=== PATIENT | female | born 1970 | race Caucasian/White ===

== ENCOUNTER 2017-02-10 11:56 | Emergency (ER) | payer BC ==
[~2017-02-10] VITALS: Ht 167.6 cm; Wt 75.3 kg
[2017-02-10 12:02] VITALS: BP 125/89
--- NOTE | 2017-02-10 12:56 | RAD ---
PA and lateral chest radiographs 02/10/2017 Clinical History: Congestion with productive cough for the last 4 days.. PA and lateral digital radiographs of the chest were obtained. No previous studies are available for comparison. The cardiac and mediastinal silhouettes are within normal limits in size and configuration. No pulmonary infiltrate is seen. No pleural effusion or pneumothorax is noted. The osseous structures are grossly intact. Impression: No radiographic evidence of active cardiopulmonary disease.
--- NOTE | 2017-02-10 12:59 | PHYS DOC ---
Past Medical History Past Medical History: Anxiety, Asthma, Depression Additional Past Medical Histor: seasonal allergies Past Surgical History: Additional Past Surgical Histo: breast augmentation Alcohol Use: Occasionally Drug Use: None Adult General Chief Complaint Chief Complaint: ASTHMA HPI HPI Patient is a 46 year old female with a history of asthma and seasonal allergic rhinitis, comes emergency room today with complaint of worsening cough and chest wall pain secondary to coughing this been ongoing for greater than a week. Patient was exiting urgent care 3 days ago. She was prescribed amoxicillin for a "sinus infection" and she just completed a course of clarithromycin for the same. She reports she received a shot of a steroid at that time and also was given one nebulizer solution for nebulizer. Patient states that she continues to have a harsh cough. She feels as if she can't fully take a deep breath and chest wall pain. Other than her history of asthma, she denies any other history of cardiopulmonary disease. She denies any fevers or chills. Review of Systems Review of Systems Constitutional: Denies fever or chills [] Eyes: Denies change in visual acuity, redness, or eye pain [] HENT: Denies nasal congestion or sore throat [] Respiratory: Denies cough or shortness of breath [] Cardiovascular: No additional information not addressed in HPI [] GI: Denies abdominal pain, nausea, vomiting, bloody stools or diarrhea [] : Denies dysuria or hematuria [] Musculoskeletal: Denies back pain or joint pain [] Integument: Denies rash or skin lesions [] Neurologic: Denies headache, focal weakness or sensory changes [] Endocrine: Denies polyuria or polydipsia [] Allergies Allergies Allergies Coded Allergies Type Severity Reaction Last Updated Verified levofloxacin Allergy Intermediate 02/10/17 Yes Physical Exam Physical Exam Constitutional: Well developed, well nourished, no acute distress, non-toxic appearance. [] HENT: Normocephalic, atraumatic, bilateral external ears normal, oropharynx moist, no oral exudates, nose normal. [] Eyes: PERRLA, EOMI, conjunctiva normal, no discharge. [] Neck: Normal range of motion, no tenderness, supple, no stridor. [] Cardiovascular:Heart rate regular rhythm, no murmur [] Lungs & Thorax: Patient demonstrates a harsh, staccato, nonproductive cough. There is no evidence of respiratory distress or respiratory fatigue. There is no posturing or assessory muscle use. Lungs are clear to auscultation bilaterally. Oxygen saturation is 98% on room air. Abdomen: Bowel sounds normal, soft, no tenderness, no masses, no pulsatile masses. [] Skin: Warm, dry, no erythema, no rash. [] Back: No tenderness, no CVA tenderness. [] Extremities: No tenderness, no cyanosis, no clubbing, ROM intact, no edema. [] Neurologic: Alert and oriented X 3, normal motor function, normal sensory function, no focal deficits noted. [] Psychologic: Affect normal, judgement normal, mood normal. [] Current Patient Data Vital Signs Vital Signs Date Time Temp Pulse Resp B/P Pulse Ox O2 Delivery O2 Flow Rate FiO2 02/10/17 12:02 98.6 75 18 125/89 96 Room Air 98.6 EKG EKG [] Radiology/Procedures Radiology/Procedures [facility] [address] [place] [address] IMAGING REPORT Signed PATIENT: ROMINA CUNNINGHAM ACCOUNT: [id number] : 1970 LOCATION: ER AGE: 46 SEX: F EXAM STATUS: REG ER ORD. PHYSICIAN: CHAVA LEMONS REASON: harsh, productive cough, on antibx PROCEDURE: CHEST PA & LATERAL PA and lateral chest radiographs 02/10/2017 Clinical History: Congestion with productive cough for the last 4 days.. PA and lateral digital radiographs of the chest were obtained. No previous studies are available for comparison. The cardiac and mediastinal silhouettes are within normal limits in size and configuration. No pulmonary infiltrate is seen. No pleural effusion or pneumothorax is noted. The osseous structures are grossly intact. Impression: No radiographic evidence of active cardiopulmonary disease. DICTATED and SIGNED BY: JANET ROSARIO MD DATE: 02/10/17 9966 CC: CHAVA LEMONS; GABRIELA ARGUETA NP ~ Course & Med Decision Making Course & Med Decision Making Pertinent Labs and Imaging studies reviewed. (See chart for details) [] Dragon Disclaimer Dragon Disclaimer This electronic medical record was generated, in whole or in part, using a voice recognition dictation system. Departure Departure Impression: Primary Impression: Seasonal allergic rhinitis Additional Impressions: Asthma Chest wall muscle strain Disposition: HOME, SELF-CARE Condition: GOOD Referrals: GABRIELA ARGUETA LEAK HUNTER (PCP) Patient Instructions: Allergic Rhinitis, Asthma Prevention-Brief, Asthma, Adult , [id number], Chest Wall Pain, [id number] Additional Instructions: 1. Your chest x-ray here today is normal. 2. Continue taking the medications as prescribed as well as the new medications here today. 3. Review the discharge instructions provided for self-care and reasons to return to the emergency department. 4. Contact your primary care doctor's office Saturday to schedule follow-up appointment for reevaluation by Saturday or . Scripts Prednisone 10 Mg Hitdvp17 Mg PO UD PREDNISONE TAPER #39 TAB Ref 0 Take 3 tablets by mouth twice a day for 3 days, then take 2 tablets by mouth twice a day for 3 days, then take 1 tablet by mouth twice a day for 3 days, then take 1 tablet by mouth daily x 3 days, then stop. Prov:CHAVA LEMONS 02/10/17 Hydrocodone/Chlorphen Polis (Tussionex Pennkinetic Susp)480 Ml Sonia.er.12h5 Ml PO BID PRN COUGH #120 ML Prov:CHAVA LEMONS 02/10/17 Problem Qualifiers CHAVA LEMONS Feb 10, 2017 12:59
[2017-02-10] MEDS ORDERED: HYDR115S2 PO (13:03)
[2017-02-10] MEDS ORDERED: PRED-220 PO (13:03)
== END 2017-02-10 13:09 | disposition home or self-care (01) ==
LOC: ER 11:56
DX: J30.2 Other seasonal allergic rhinitis (principal); J45.909 Unspecified asthma, uncomplicated; S29.011A Strain of muscle and tendon of front wall of thorax, initial encounter; Z88.1 Allergy status to other antibiotic agents; X58.XXXA Exposure to other specified factors, initial encounter; Y93.89 Activity, other specified; Y92.89 Other specified places as the place of occurrence of the external cause; Y99.8 Other external cause status
CPT/HCPCS: 71020; 99284

== ENCOUNTER → 2017-05-03 | Outpatient (CLI) | payer BC ==
[~2017-05-03] MED LIST: HYDR115S2 PO; PRED-220 PO
--- NOTE | 2017-05-03 12:48 | KCIC ---
Bilateral digital screening mammograms: Reason for examination: Routine screening. Comparison is made to previous studies dated back to 01/31/2010. The skin and nipples show no abnormalities. No abnormal axillary lymph nodes are seen. Bilateral breast implants remain in place. The breast parenchyma is heterogeneously dense. (Breast density: Category C.) There are no dominant masses, suspicious calcifications or architectural distortion. Impression: No evidence of malignancy. Recommend routine screening. Your patient's mammogram demonstrates that she has dense breast tissue (breast density category C or D), which could hide abnormalities, and if she has other risk factors for breast cancer that have been identified, she might benefit from supplemental screening tests that may be suggested by you as her ordering physician. Dense breast tissue, in and of itself, is a relatively common condition. Therefore, this information is not provided to cause undue concern, but rather to raise your awareness and to promote discussion with your patient regarding the presence of other risk factors, in addition to dense breast tissue. Your patient's mammography results will be sent to her. BI-RAD Category 1: Negative. "Our facility is accredited by the [employer] Mammography Program." This patient's information has been entered into a reminder system for the patient to be notified with the results of her examination and a target date for the next mammogram. Electronically signed by: Ashwini Mcdowell MD (05/03/2017 12:44 PM) [id number]
== END | disposition home or self-care (01) ==
LOC: KCIC MAMMO 10:53
PROVIDERS: ATTEND Obstetrics & Gynecology
DX: Z12.31 Encounter for screening mammogram for malignant neoplasm of breast (principal)
CPT/HCPCS: G0202; 77067

== ENCOUNTER → 2018-11-06 | Outpatient (CLI) | payer OTHER ==
--- NOTE | 2018-11-06 17:14 | KCIC ---
CHEST PA LATERAL Clinical indications: Shortness of air. Fever. Cough. COMPARISON: February 10, 2017. Findings: No acute lung infiltrate or pleural effusion or pulmonary edema or lung mass or pneumothorax is seen. The heart size, pulmonary vasculature, mediastinum and both amandeep are unremarkable. The osseous structures appear intact. Impression: No acute radiographic abnormality is seen. Electronically signed by: Samuel Mcmillan MD (11/06/2018 5:10 PM) [place] [id number]
== END | disposition home or self-care (01) ==
LOC: KCIC 12:38
PROVIDERS: ATTEND Family Medicine
DX: J18.9 Pneumonia, unspecified organism (principal)
CPT/HCPCS: 71046

== ENCOUNTER → 2019-08-12 | Day surgery (SDC) | payer BC, OTHER ==
[~2019-08-12] MED LIST changes: +BUDE10.2 IH; +CETI10TA22 PO; +IV RINGERS,LACTATED 1000ML 1,000 ML IV SCH; +LIDOCAINE 2% PF 5 ML VIAL. ONE; +MONT10TA49 PO; +PROPOFOL 40 ML IV ONE
[2019-08-12 09:41] VITALS: BP 135/76
--- NOTE | 2019-08-13 15:07 | PATHOLOGY ---
[facility] Accession Number: [id number] . 01 Material submitted: . PART A: duodenum - DUODENAL BIOPSY PART B: colon - RANDOM COLON BIOPSY . 01 Clinical history: . Diarrhea/heartburn rule out celiac disease duodenitis . 02 Diagnosis: A. Duodenal biopsies: - No significant pathologic abnormalities. . B. Random colon biopsies: - Collagenous colitis. (JPM:timbo; 08/13/2019) QMS 08/13/2019 1040 Local . 02 Comment: Sections of the duodenal biopsy reveal segments of duodenal and small intestine mucosa. Where best oriented, the mucosal villi show no sprue-like changes or significant inflammatory changes. . Sections of the random colon biopsy reveal multiple segments of colonic mucosa containing several mucosal-associated lymphoid aggregates and showing a mild chronic active colitis without crypt architectural distortion. Collagen is focally deposited around the absorptive capillary complex beneath the surface epithelium. The findings are supportive of the diagnosis of collagenous colitis. There is no evidence of a chronic destructive colitis. (JPM:timbo; 08/13/2019) . 02 Electronically signed: . Mukul Villavicencio MD, Pathologist NPI- [id number] . 01 Gross description: . A. The specimen is received in formalin, labeled "Debbie Chavez, duodenal BX" and consists of multiple fragments of kelley tissue measuring 1.3 x 0.8 x 0.3 cm in aggregate which are entirely submitted in A1. . B. The specimen is received in formalin, labeled "Chavez, Debbie, random colon BX" and consists of multiple fragments of kelley tissue measuring 1.8 x 0.9 x 0.3 cm in aggregate which are entirely submitted in B1. (SDY; 08/12/2019) SYU/SYU 08/12/2019 1658 Local . 02 Pathologist provided ICD-10: K52.831 . 02 CPT . 817662, [id number] Specimen Comment: A courtesy copy of this report has been sent to Specimen Comment: [phone], . Specimen Comment: Report sent to / DR GRANDE Performed at: 01 [facility] [address], [place], [place] [id number] MD Fawda Barrientos MD Phone: [phone] Performed at: 02 [facility] [address] [place], [place] [id number] MD Mukul Villavicencio MD Phone: [phone]
== END ==
LOC: ENDOS 07:51
PROVIDERS: ATTEND Internal Medicine Gastroenterology
DX: K52.9 Noninfective gastroenteritis and colitis, unspecified (principal); K52.831 Collagenous colitis; K25.9 Gastric ulcer, unspecified as acute or chronic, without hemorrhage or perforation; K31.89 Other diseases of stomach and duodenum; J45.909 Unspecified asthma, uncomplicated; F41.9 Anxiety disorder, unspecified; F15.90 Other stimulant use, unspecified, uncomplicated; Z72.89 Other problems related to lifestyle; Z98.890 Other specified postprocedural states; K64.0 First degree hemorrhoids
CPT/HCPCS: 43239; 45380; J2001; J2704; 88305

== ENCOUNTER → 2019-08-14 | Outpatient (CLI) | payer BC ==
[2019-08-12 09:41] VITALS: BP 135/76
[~2019-08-14] MED LIST changes: +CONTRAST GIVEN. MC PRN; +IOHEXOL 240 MG/ML 50ML VIAL. PO ONE; +IOHEXOL 300 MG/ML 100ML VIAL. IV ONE; -IV RINGERS,LACTATED 1000ML 1,000 ML IV SCH; -LIDOCAINE 2% PF 5 ML VIAL. ONE; -PROPOFOL 40 ML IV ONE
--- NOTE | 2019-08-14 16:23 | RAD ---
EXAM: Abdomen and pelvis CT with intravenous contrast. HISTORY: Pain and diarrhea. TECHNIQUE: Computed tomographic images of the abdomen and pelvis were obtained following the administration of 75 cc Omnipaque 300 intravenous contrast. Multiplanar reformatting was performed. *One or more of the following individualized dose reduction techniques were utilized for this examination: 1. Automated exposure control. 2. Adjustment of the mA and/or kV according to patient size. 3. Use of iterative reconstruction technique. COMPARISON: None. FINDINGS: Evaluation of the lower thorax demonstrates no infiltrate or pleural effusion. There are implanted breast prostheses. The heart is normal in size. There is a tiny hiatal hernia. There is a tiny cyst within the right hepatic lobe and suspected geographic fatty infiltration of the posterior right hepatic lobe. The gallbladder, pancreas, adrenal glands and stomach are unremarkable. There is a splenule along the anterior inferior aspect of an otherwise unremarkable spleen. The kidneys are unremarkable. The appendix is upper normal in caliber. There is no convincing appendicitis. There is no evidence of bowel obstruction. There is faint fatty stranding surrounding the cecum and rectum. The aorta is normal in caliber. No pathologically enlarged lymph node is seen. There is mild urinary bladder wall thickening which is likely due to relative decreased bladder volume. There is a 1.6 cm dominant left ovarian follicle. There is no suspicious osseous lesion. There is mild listhesis of L2 on L3 and L3 on L4 and L4 and L5. IMPRESSION: 1. Prominent appendix caliber. This is likely physiologic given the absence of secondary findings to suggest appendicitis. 2. Faint pericecal and perirectal fatty stranding. Given history of pain and diarrhea, the possibility of colitis or proctitis is not excluded. 3. 1.6 cm dominant left ovarian follicle. Electronically signed by: Caryl Hester MD (08/14/2019 4:20 PM) [place] [id number]
== END | disposition home or self-care (01) ==
LOC: CT 14:33
PROVIDERS: ATTEND Internal Medicine Gastroenterology
DX: K44.9 Diaphragmatic hernia without obstruction or gangrene (principal); K76.89 Other specified diseases of liver; N88.8 Other specified noninflammatory disorders of cervix uteri; Z98.82 Breast implant status
CPT/HCPCS: 74177; Q9966; Q9967

== ENCOUNTER 2020-07-21 13:59 | Emergency (ER) | payer BC ==
[~2020-07-21] VITALS: Ht 170.2 cm; Wt 73.6 kg
[~2020-07-21 13:59] MED LIST changes: -CETI10TA22 PO; +CETI10TA74 PO; -CONTRAST GIVEN. MC PRN; -IOHEXOL 240 MG/ML 50ML VIAL. PO ONE; -IOHEXOL 300 MG/ML 100ML VIAL. IV ONE
[2020-07-21 14:04] VITALS: BP 154/97
[2020-07-21] MEDS ORDERED: HYDROcodone/APAP 5/325MG 1 TAB TABLET PO ONE (14:45)
--- NOTE | 2020-07-21 15:32 | PHYS DOC ---
Past Medical History Past Medical History: Anxiety, Asthma, Depression Additional Past Medical Histor: seasonal allergies Past Surgical History: Additional Past Surgical Histo: breast augmentation, endometrial ablation Smoking Status: Never Smoker Alcohol Use: Occasionally Drug Use: None General Adult EDM: Chief Complaint: UPPER EXTREMITY PAIN HPI: HPI: Patient is a 50 year old female with history of depression, anxiety, who presents to the ED today complaining of a knot on the right forearm that she has had for 5 days. Patient states she was seen by the PCP on Saturday and was told she has cellulitis to the right forearm and was put on Bactrim. She states the area has grown bigger and the right hand forearm is more swollen and red. Patient denies any fever. Denies any nausea vomiting. Review of Systems: Review of Systems: Constitutional: Denies fever or chills. [] Eyes: Denies change in visual acuity. [] HENT: Denies nasal congestion or sore throat. [] Respiratory: Denies cough or shortness of breath. [] Cardiovascular: Denies chest pain or edema. [] GI: Denies abdominal pain, nausea, vomiting, bloody stools or diarrhea. [] : Denies dysuria. [] Musculoskeletal: Denies back pain or joint pain. [] Integument: Reports a knot to the right forearm Neurologic: Denies headache, focal weakness or sensory changes. [] Psychiatric: Denies depression or anxiety. [] Heart Score: Risk Factors: Risk Factors: DM, Current or recent (<one month) smoker, HTN, HLP, family history of CAD, obesity. Risk Scores: Score 0 - 3: 2.5% MACE over next 6 weeks - Discharge Home Score 4 - 6: 20.3% MACE over next 6 weeks - Admit for Clinical Observation Score 7 - 10: 72.7% MACE over next 6 weeks - Early Invasive Strategies Current Medications: Current Medications Medications (Trade) Dose Ordered Sig/Marie Start Time Stop Time Status Last Admin Dose Admin Acetaminophen/ Hydrocodone Bitart (Lortab 5/325) 1 tab 1X ONCE 07/21/20 14:45 07/21/20 14:46 DC 07/21/20 15:20 1 TAB Allergies: Allergies: Allergies Coded Allergies Type Severity Reaction Last Updated Verified clarithromycin Allergy Intermediate Nausea/Vomiting 07/21/20 Yes levofloxacin Allergy Intermediate 08/12/19 Yes Physical Exam: PE: Constitutional: Well developed, well nourished, no acute distress, non-toxic appearance. [] HENT: Normocephalic, atraumatic, bilateral external ears normal, oropharynx moist, no oral exudates, nose normal. [] Eyes: PERRLA, EOMI, conjunctiva normal, no discharge. [] Neck: Normal range of motion, no tenderness, supple, no stridor. [] Cardiovascular:Heart rate regular rhythm, no murmur [] Lungs & Thorax: Bilateral breath sounds clear to auscultation [] Abdomen: Bowel sounds normal, soft, no tenderness, no masses, no pulsatile masses. [] Skin: Warm, dry, right forearm distal end with a slightly indurated area approximately 2 x 2 cm. There is no obvious redness to this area, there is no obvious redness to the right upper extremity especially comparing it to the left. There is slight swelling to the right upper extremity, adequate radial, medial, ulnar sensation to the right upper extremity. +2 right radial pulse. Cap refill less than 2 seconds the right fingers. Back: No tenderness, no CVA tenderness. [] Extremities: No tenderness, no cyanosis, no clubbing, ROM intact, no edema. [] Neurologic: Alert and oriented X 3, normal motor function, normal sensory function, no focal deficits noted. [] Psychologic: Affect normal, judgement normal, mood normal. [] Current Patient Data: Vital Signs: Vital Signs Date Time Temp Pulse Resp B/P (MAP) Pulse Ox O2 Delivery O2 Flow Rate FiO2 07/21/20 15:20 Room Air 07/21/20 14:04 98.7 56 17 154/97 (116) 96 98.7 EKG: EKG: [] Radiology/Procedures: Radiology/Procedures: []PROCEDURE: VENOUS UPPER EXTREMITY RIGHT INDICATION: Reason: swelling r/o abscess or DVT / Spl. Instructions: / History: COMPARISON: None. TECHNIQUE: Grayscale, color and doppler ultrasound images were obtained of the right upper extremity venous vasculature. RIGHT: No thrombus identified in the internal jugular, subclavian, axillary, brachial, basilic, cephalic, radial or ulnar veins. IMPRESSION: 1. No thrombus identified in deep venous system of right upper extremity. 2. Heterogeneity in the soft tissues at the forearm without a well-defined drainable fluid collection at this time Electronically signed by: Zara Ceja MD (07/21/2020 3:30 PM) [id number] DICTATED and SIGNED BY: ZARA CEJA MD DATE: 07/21/20 1530 Course & Med Decision Making: Course & Med Decision Making Pertinent Labs and Imaging studies reviewed. (See chart for details) This is a 50-year-old female patient presenting to the ED today complaining of a knot on the right forearm that she has had since Saturday, was seen by the PCP on Saturday and was told she has cellulitis, she states the area has gotten worse. On physical exam there is no obvious signs of cellulitis to this region. There is a palpable knot on the right forearm lateral aspect with no fluctuance to this region. No signs of infection. Patient is afebrile with a temperature of 98.7. Currently she is on Bactrim. Tetanus is up-to-date. Venous Doppler of the right upper extremity no thrombus identified in deep venous system of right upper extremity. Heterogeneity in the soft tissues at the forearm without a well-defined drainable fluid collection at this time Discharged home. I added patient cephalexin to her Bactrim because she was concerned. I reminded her the area does not look like cellulitis though I did not see it at the beginning. If it was red it is improving. Tetanus is up-to-date. She has a PCP for follow-up. Meghann Disclaimer: Meghann Disclaimer: This electronic medical record was generated, in whole or in part, using a voice recognition dictation system. Departure Departure Impression: Primary Impression: Edema Qualified Codes: R60.9 - Edema, unspecified Disposition: HOME, SELF-CARE Condition: STABLE Referrals: CECI GUERRERO MD (PCP) follow up next week Patient Instructions: Edema, [id number] Additional Instructions: You were evaluated in the emergency room, continue taking Bactrim as well as cephalexin. Apply warm compresses to the area. Follow-up with your own doctor in the course of next week. Scripts Hydrocodone/Acetaminophen (Hydrocodone-Acetamin 5-325 mg) 1 Each Tablet 1 EACH PO Q6HRS, #10 TAB Prov: ERIN FIGUEROA APRN 07/21/20 Cephalexin (CEPHALEXIN) 500 Mg Capsule 1 CAP PO TID, #30 CAP Prov: MUTUNGA,ERIN MANAGER CAR 07/21/20 ERIN FIGUEROA APRN Jul 21, 2020 15:32
[2020-07-21] MEDS ORDERED: HYDR-2759 PO (15:51)
[2020-07-21] MEDS ORDERED: CEPH500C PO (15:51)
== END 2020-07-21 16:02 | disposition home or self-care (01) ==
LOC: ER 13:59
DX: R60.0 Localized edema (principal); J45.909 Unspecified asthma, uncomplicated; Z88.1 Allergy status to other antibiotic agents
CPT/HCPCS: 93971; 99284

== ENCOUNTER → 2021-06-05 | Outpatient (CLI) | payer BC ==
[~2021-06-05] MED LIST changes: +CEPH500C PO; +CONTRAST GIVEN. MC PRN; +HYDR-2759 PO; +IOHEXOL 300 MG/ML 100ML VIAL. IV ONE
--- NOTE | 2021-06-05 11:56 | RAD ---
CT of the abdomen and pelvis with contrast 06/05/2021 11:52 AM Indication: Reason: R, LLQ ABDOMEN PAIN, BILATERAL FLANK PAIN X 1 WEEK, UTI / Comparison study: CT abdomen and pelvis August 14, 2019 Technique: Multidetector CT imaging of the abdomen and pelvis was performed following the administrat ion of IV contrast. Findings: The partially visualized lung bases demonstrate no acute abnormality. The liver, gallbladder, spleen, bilateral adrenal glands, bilateral kidneys, and pancreas, are demons trated no acute abnormality. There is no bowel obstruction. No evidence of acute inflammatory change involving visualized bowel is identified. Appendix is visualized and unremarkable in appearance. Blad angela is grossly unremarkable. No free fluid or free air is seen in the abdomen or pelvis. No acute os seous changes are identified. Impression: No evidence of acute intra-abdominal abnormality is identified. CT DOSING PQRS STATEMENT: One or more of the following individualized dose reduction techniques were utilized for this examinat ion: 1. Automated exposure control 2. Adjustment of the mA and/or kV according to patient size 3. Use of iterative reconstruction technique Electronically signed by: Jorge Luis Portillo MD (06/05/2021 11:53 AM) [id number]
== END ==
LOC: CT 08:41
PROVIDERS: ATTEND Family Medicine
DX: R10.32 Left lower quadrant pain (principal)
CPT/HCPCS: 74177; Q9967

== ENCOUNTER → 2021-06-08 | Outpatient (CLI) | payer BC ==
[~2021-06-08] MED LIST changes: -CONTRAST GIVEN. MC PRN; +IOHEXOL 240 MG/ML 50ML VIAL. PO ONE
--- NOTE | 2021-06-09 09:28 | KCIC ---
EXAM: CT Abdomen and Pelvis with IV contrast CLINICAL HISTORY: Reason: ABDOMINAL PAIN, RT AND LT SIDE COMPARISON: none TECHNIQUE: Helical CT of the abdomen and pelvis was performed following the administration of intrave nous contrast. Axial, coronal and sagittal reformatted images were generated. PQRS compliance statement - One or more of the following individualized dose reduction techniques wer e utilized for this study: 1. Automated exposure control 2. Adjustment of the mA and/or kV according to patient size 3. Use of iterative reconstruction technique FINDINGS: Lower Chest: Lung bases are clear. Breast implants are partially profiled. Abdomen and Pelvis: Hepatic hypoattenuation, fatty liver. Gallbladder is normal. No biliary ductal dilatation. Pancreas, spleen and adrenal glands are unremarkable. Symmetric nephrograms. No focal renal lesion. No hydronep hrosis. No hydroureter. Mild bladder wall thickening likely cystitis. Appendix is normal. Moderate co lonic stool content is seen. No small or large bowel dilatation. No bowel obstruction. Trace fat-cont aining periumbilical hernia is seen. No abdominal or pelvic ascites. No abdominal or pelvic lymphadenopathy. Bones: No aggressive osseous lesion is seen. Prominence of the femoral head/neck junction bilaterally may be seen with RUKHSANA, nonspecific. IMPRESSION: 1. Hepatic hypoattenuation may be seen with fatty liver. 2. Mild bladder wall thickening, nonspecific but may be seen with cystitis and can be correlated wit h urinalysis. Electronically signed by: Demond Ch MD (06/09/2021 9:26 AM) [id number]
== END ==
LOC: KCIC CT 14:01
PROVIDERS: ATTEND Family Medicine
DX: R10.9 Unspecified abdominal pain (principal); K82.8 Other specified diseases of gallbladder
CPT/HCPCS: 74177; Q9966; Q9967